=== PATIENT | male | born 1990 | race Caucasian/White ===

== ENCOUNTER 2021-11-27 08:21 | Day surgery (SDC) | payer OTHER ==
[2021-11-24 16:25] VITALS: BMI 32.8
[~2021-11-27 08:21] MED LIST: BUPIVACAINE HCL/PF 0.25% (2.5MG/ML) 10 ML VIAL IJ ONE
[2021-11-27] MEDS ORDERED: BUPIVACAINE HCL/PF 2.5 MG/ML - 30 ML VIAL IJ ONE (11:11)
[2021-11-27] MEDS ORDERED: oxyCODONE HCL 5 MG TABLET PO PRN (11:19)
[2021-11-27] MEDS ORDERED: PROMETHAZINE HCL 25 MG/1 ML VIAL IVPUSH PRN (11:19)
[2021-11-27] MEDS ORDERED: ONDANSETRON 4 MG/2 ML VIAL IVPUSH PRN (11:19)
[2021-11-27] MEDS ORDERED: LACTATED RINGERS SOLUTION 1,000 ML IV SCH (11:30)
[2021-11-27] MEDS ORDERED: MIDAZOLAM HCL 2 MG/2 ML SINGLE DOSE VIAL ONE ×2 (12:01)
[2021-11-27] MEDS ORDERED: PROPOFOL 20 ML ONE (12:10)
[2021-11-27] MEDS ORDERED: BUPIVACAINE HCL/PF 0.25% (2.5MG/ML) 10 ML VIAL IJ ONE (12:33)
[2021-11-27] MEDS ORDERED: ACETAMINOPHEN INJECTION 100 ML IVPB ONE (13:05)
[2021-11-27] MEDS ORDERED: ACETAMINOPHEN 1000 MG/100 ML BAG IVPB ONE (13:15)
[2021-11-27 14:38] VITALS: BP 131/89; PULSE 74; TEMP 98
== END 2021-11-27 14:05 | disposition home or self-care (01) ==
LOC: FASU 08:21
PROVIDERS: ATTEND Orthopaedic Surgery
PROC: 0SBD4ZZ Excision of Left Knee Joint, Percutaneous Endoscopic Approach (ICD-10-PCS; 2021-11-27)
PROC: 0SBD4ZZ Excision of Left Knee Joint, Percutaneous Endoscopic Approach (ICD-10-PCS; principal; 2021-11-27 12:22)
DX: M23.92 Unspecified internal derangement of left knee (principal); M65.862 Other synovitis and tenosynovitis, left lower leg
CPT/HCPCS: 94760